=== PATIENT | female | born 1960 | race Native Hawaiian/Other Pacific Islander ===

== ENCOUNTER 2021-10-27 12:02 | Outpatient (CLI) | payer OTHER | END 2021-10-27 18:51 | disposition home or self-care (01) | LOC: CT 12:02 | PROVIDERS: ATTEND Internal Medicine | DX: R22.0 Localized swelling, mass and lump, head (principal); W19.XXXA Unspecified fall, initial encounter | CPT/HCPCS: 36415; 82565; 84520 ==